=== PATIENT | female | born 1945 | race Caucasian/White ===

== ENCOUNTER 2024-12-05 16:26 | Inpatient (IN) | payer MEDICARE ==
[~2024-12-05] VITALS: Ht 162.6 cm; Wt 76.2 kg
[2024-12-05] MEDS ORDERED: FLUO20CA42 PO (19:05)
[2024-12-05] MEDS ORDERED: ATOR20TA PO (19:05)
[2024-12-05] MEDS ORDERED: CHOL100043 PO (19:05)
[2024-12-05] MEDS ORDERED: CALC-343 PO (19:05)
[2024-12-05] MEDS ORDERED: LOPE2CAP40 PO (19:05)
[2024-12-05] MEDS ORDERED: MIRT7.5T10 PO (19:05)
[2024-12-05] MEDS ORDERED: PHEN95TA26 PO (19:05)
[2024-12-05] MEDS ORDERED: IBAN150T16 PO (19:05)
[2024-12-05] MEDS ORDERED: HYDR-3642 PO (19:05)
[2024-12-05] MEDS ORDERED: CALC-903 PO (19:05)
[2024-12-05 19:15] VITALS: BP 113/56; TEMP 98.4; O2SAT 98
[2024-12-05] MEDS ORDERED: MAG HYDROX/AL HYDROX/SIMETH 30 ML UDC PO PRN (19:30)
[2024-12-05] MEDS ORDERED: MAGNESIUM HYDROXIDE 30 ML UDC PO PRN (19:30)
[2024-12-05] MEDS: BLOOD SUGAR DIAGNOSTIC 1 EACH STRIP IN ONE (20:02)
[2024-12-05 21:07] VITALS: BP 113/56; TEMP 98.4; O2SAT 98
[2024-12-06] MEDS ORDERED: LOPERAMIDE HCL (2 MG CAP) 2 MG CAPSULE PO PRN
[2024-12-06 07:54] LABS: ALBUMIN 3.5 g/dL (3.4-5.0); BILIRUBIN,TOTAL 0.7 mg/dL (0.2-1.0); CREATININE 0.9 mg/dL (0.6-1.3); POTASSIUM 3.9 mmol/L (3.5-5.1); TOTAL PROTEIN, SERUM 6.9 g/dL (6.4-8.2)
[2024-12-06 08:00] VITALS: BP 141/61; TEMP 98.1; O2SAT 99
[2024-12-06] MEDS: CHOLECALCIFEROL 1,000 UNIT TABLET (VIT D3) PO SCH (08:12)
[2024-12-06] MEDS: CALCIUM CARBONATE 500 MG TAB.CHEW PO SCH (08:12)
[2024-12-06] MEDS: ATORVASTATIN 10 MG TABLET PO SCH (08:12)
[2024-12-06 08:15] LABS: THYROID STIMULATING HORMONE 0.76 uIU/mL (0.358-3.74)
[2024-12-06 16:00] VITALS: BP 119/60; TEMP 98.7; O2SAT 98
[2024-12-06] MEDS: LORAZEPAM 1 MG TABLET PO PRN (16:20)
[2024-12-06 20:15] VITALS: BP 115/78; TEMP 98.1; O2SAT 98
[2024-12-06] MEDS: QUETIAPINE FUMARATE 25 MG TABLET PO SCH (21:30)
[2024-12-06] MEDS: ZOLPIDEM TARTRATE 5 MG TABLET PO PRN (21:30)
[2024-12-07 07:28] LABS: BASOPHILS % (AUTO) 0.2 % (0.0-2.0); EOSINOPHILS % (AUTO) 0.4 % (0.0-6.0); HEMATOCRIT 42 % (33-45); HEMOGLOBIN 14.4 g/dL (11.5-14.8); LYMPHOCYTES # (AUTO) 0.5 K/uL (0.8-4.8); LYMPHOCYTES % (AUTO) 9.3 % (20.0-44.0); MEAN CORPUSCULAR HEMOGLOBIN 31 PG (26.0-33.0); MEAN CORPUSCULAR HGB CONC 34 g/dl (31.0-36.0); MEAN CORPUSCULAR VOLUME 91 fL (82-100); MONOCYTES # (AUTO) 0.5 K/uL (0.1-1.30); MONOCYTES % (AUTO) 9.6 % (2.0-12.0); NEUTROPHILS # (AUTO) 4.2 K/uL (1.8-8.9); NEUTROPHILS % (AUTO) 80.5 % (43.0-81.0); PLATELET COUNT (AUTO) 235 K/uL (150-450); RED BLOOD CELL COUNT(AUTO) 4.62 MIL/uL (4.0-5.2); RED CELL DISTRIBUTION WIDTH 13.2 % (11.5-15.0); WHITE BLOOD COUNT (AUTO) 5.3 K/uL (4.3-11.0)
[2024-12-07 07:41] LABS: CALCIUM, SERUM 10.1 mg/dL (8.5-10.1); CREATININE 1.2 mg/dL (0.6-1.3); MAGNESIUM 1.9 mg/dL (1.8-2.4); PHOSPHORUS 3.2 mg/dL (2.5-4.9); POTASSIUM 3.9 mmol/L (3.5-5.1)
[2024-12-07 08:00] VITALS: BP 133/81; TEMP 98; O2SAT 98
[2024-12-07] MEDS ORDERED: FLUOXETINE HCL 20 MG CAPSULE PO SCH (09:00)
[2024-12-07] MEDS: QUETIAPINE FUMARATE 25 MG TABLET PO SCH ×2 (09:54→21:41)
[2024-12-07 16:00] VITALS: BP 127/74; TEMP 97.9; O2SAT 98
[2024-12-07 20:16] VITALS: BP 100/45; TEMP 98.3; O2SAT 96
[2024-12-08 08:00] VITALS: BP 110/60; TEMP 97.8; O2SAT 94
[2024-12-08] MEDS: FLUOXETINE HCL 20 MG CAPSULE PO SCH (09:26)
[2024-12-08] MEDS: ENSURE ENLIVE CHOC 237 ML CAN PO SCH (09:26)
[2024-12-08 16:00] VITALS: BP 119/56; TEMP 97.8; O2SAT 97
[2024-12-08 20:28] VITALS: BP 124/65; TEMP 98.1; O2SAT 96
[2024-12-09 08:00] VITALS: BP 120/68; TEMP 98.1; O2SAT 98
[2024-12-09] MEDS: ACETAMINOPHEN 325 MG TABLET PO PRN (16:38)
[2024-12-09 20:52] VITALS: BP 140/93; TEMP 97.9; O2SAT 98
[2024-12-09] MEDS: QUETIAPINE FUMARATE 25 MG TABLET PO SCH (21:15)
[2024-12-10 08:00] VITALS: BP 101/91; TEMP 97.9; O2SAT 97
[2024-12-10] MEDS: QUETIAPINE FUMARATE 25 MG TABLET PO SCH (08:25)
[2024-12-10 15:54] VITALS: BP 124/50; TEMP 98.1; O2SAT 96
[2024-12-10 20:59] VITALS: BP 140/72; TEMP 98.1; O2SAT 96
[2024-12-10] MEDS: QUETIAPINE FUMARATE 100 MG TABLET PO SCH (21:36)
[2024-12-11 08:00] VITALS: BP 116/60; TEMP 98.1; O2SAT 100
[2024-12-11 15:57] VITALS: BP 101/68; TEMP 97.7; O2SAT 98
[2024-12-11 19:55] VITALS: BP 129/58; TEMP 97.8; O2SAT 100
[2024-12-12 08:00] VITALS: BP 103/60; TEMP 98.7; O2SAT 98
[2024-12-12 16:00] VITALS: BP 136/61; TEMP 98.1; O2SAT 98
[2024-12-12 20:48] VITALS: BP 122/56; TEMP 97.9; O2SAT 99
[2024-12-13 08:00] VITALS: BP 120/66; TEMP 97.9; O2SAT 98
[2024-12-13 16:00] VITALS: BP 125/70; TEMP 98.7; O2SAT 98
[2024-12-13 20:10] VITALS: BP 118/75; TEMP 98; O2SAT 100
[2024-12-14 08:00] VITALS: BP 119/60; TEMP 98; O2SAT 97
[2024-12-14 16:00] VITALS: BP 126/60; TEMP 97.9; O2SAT 99
[2024-12-14] MEDS: LORAZEPAM 0.5 MG TABLET PO PRN (16:26)
[2024-12-14 20:00] VITALS: BP 142/64; TEMP 98.1; O2SAT 99
[2024-12-15 08:00] VITALS: BP 108/59; TEMP 97.8; O2SAT 94
== END 2024-12-15 12:15 | DRG 885 ==
LOC: ER 16:32 → EDSEX 17:45 → GPS 17:45
PROVIDERS: ADMIT Psychiatry & Neurology Psychiatry; ATTEND Internal Medicine
DX: F33.3 Major depressive disorder, recurrent, severe with psychotic symptoms (principal); G93.41 Metabolic encephalopathy; F03.93 Unspecified dementia, unspecified severity, with mood disturbance; F03.918 Unspecified dementia, unspecified severity, with other behavioral disturbance; R45.851 Suicidal ideations; F29 Unspecified psychosis not due to a substance or known physiological condition; Z79.899 Other long term (current) drug therapy; R79.89 Other specified abnormal findings of blood chemistry; Z91.51 Personal history of suicidal behavior
CPT/HCPCS: 36415; 70450-TC; 80048-TC; 80053-TC; 80061-TC; 82607-TC; 82962-TC; 83735-TC; 84100-TC; 84439-TC; 84443-TC; 85025-TC; 87081-TC; 97112-TC; 97116-TC; 97530-TC